=== PATIENT | male | born 1985 | race Caucasian/White ===

== ENCOUNTER 2016-07-15 19:44 | Emergency (ER) | payer BC, OTHER ==
[2016-07-15 19:58] VITALS: TEMP 97.8; BMI 38.7
--- NOTE | 2016-07-15 20:29 | PDOC ---
History of Present Illness - General Chief Complaint: Psychiatric Stated Complaint: ANXIETY Time Seen by Provider: 07/15/16 20:09 History Source: Patient, Family (Mother) Exam Limitations: No Limitations - History of Present Illness Initial Comments: 31yo Male patient w/ PmHx: Anxiety presents to ED c/o Panic attack. Patient states he was on his way to a "date" when he began to have anxiety. He reports full body numbness with rapid pulse. He states he recently began taking Claritin because Zyrtec was not working. Patient reports his PCP is aware, and has requested that he see a therapist, but patient states he did not have any health insurance at that time, but now has and is willing to go. Timing/Duration: just prior to arrival Severity: moderate Episode Description: See HPI Associated Symptoms: anxiety, impaired concentration Past History - Past Medical History Allergies/Adverse Reactions: Allergies Penicillins Allergy (Verified 07/15/16 19:53) Home Medications: Ambulatory Orders Diazepam [Valium] 5 mg PO Q8H PRN #9 tablet MDD 3 tabs 07/15/16 Loratadine [Claritin] 10 mg PO DAILY 07/15/16 Psychosocial History: Yes: anxiety, panic attacks (Today). No: no pertinent history, attention deficit, bipolar, depression, post traumatic stress, prior suicide attempt, schizophrenia, cancer, diabetes, heart disease, hypertension, lung disease, vascular disease, other Surgical History: No: No Surgical History, Noncontributory, Angioplasty, Appendectomy, Breast Reduction, Cancer Surgery, Cholecystectomy, Colectomy, Coronary Bypass Surgery, Cardiac Stent, Gastric Bypass, Hernia Repair, Lumpectomy, Pacemaker, Pneumothorax, Tonsillectomy, , Hysterectomy, Other - Family History Significant Family History: No: no pertinent family hx, asthma, heart disease, cancer, COPD, diabetes, hypertension, lung disease, renal disease, seizures, stroke, TIA, vascular disease, other - Immunization History Immunization Up to Date: Yes - Social History Smoking Status: Never smoked *Review of Systems - Review of Systems Able to Perform ROS?: Yes Constitutional: No: Chills, Fever HEENTM: No: Throat Pain, Throat Swelling, Difficulty Swallowing Respiratory: No: Shortness of Breath, Stridor, Wheezing, Hemoptysis Cardiac (ROS): Yes: Palpitations. No: Chest Pain, Irregular Heart Rate, Lightheadedness, Syncope, Chest Tightness ABD/GI: No: Diarrhea, Nausea, Poor Appetite, Poor Fluid Intake, Rectal Bleeding , Vomiting, Abdominal cramping : No: Dysuria, Flank Pain, Hematuria Musculoskeletal: No: Back Pain Integumentary: Yes: Sweating. No: Bruising, Dryness, Erythema, Rash Neurological: Yes: Numbness, Tingling. No: Headache, Paresthesia, Seizure, Tremors, Weakness, Unsteady Gait, Ataxia, Dizziness Psychiatric: Yes: Anxiety, Stressors. No: Depression All Other Systems: Reviewed and Negative *Physical Exam - Vital Signs Last Vital Signs Temp Pulse Resp BP Pulse Ox 97.8 F 120 H 22 149/108 97 07/15/16 19:53 07/15/16 19:53 07/15/16 19:53 07/15/16 19:53 07/15/16 19:53 - Physical Exam General Appearance: Yes: Nourished, Appropriately Dressed, Other (Mild Anxiety) . No: Apparent Distress, Mild Distress, Moderate Distress, Severe Distress HEENT: positive: EOMI, RODDY, Normal ENT Inspection, Normal Voice, Symmetrical, TMs Normal, Pharynx Normal. negative: Tonsillar Exudate, Tonsillar Erythema, Nasal Congestion, Rhinorrhea, TM Bulging, TM Dull, TM Erythema Neck: positive: Trachea midline, Normal Thyroid, Supple Respiratory/Chest: positive: Lungs Clear, Normal Breath Sounds. negative: Respiratory Distress, Accessory Muscle Use, Labored Respiration, Rapid RR, Crackles, Rales, Rhonchi, Stridor, Wheezing Cardiovascular: positive: Regular Rhythm, Regular Rate Gastrointestinal/Abdominal: positive: Normal Bowel Sounds, Soft. negative: Distended, Guarding, Rebound, Tenderness Musculoskeletal: positive: Normal Inspection. negative: CVA Tenderness Extremity: positive: Normal Capillary Refill, Normal Inspection, Normal Range of Motion. negative: Pedal Edema, Swelling, Calf Tenderness, Erythema, Inflammation Integumentary: positive: Normal Color, Dry, Warm Neurologic: positive: service person II-XII NML intact, Fully Oriented, Alert, Normal Mood/ Affect, Normal Response, Motor Strength 5/5 Plan - Order(s) Order(s): Orders Medication Instructions Recorded Loratadine [Claritin] 10 mg PO DAILY 07/15/16 Orders last 12 hours Category Date Time Status ELECTROCARDIOGRAM [CARD] Stat Cardiology 07/15/16 20:22 Ordered CBC WITH DIFFERENTIAL Stat Lab 07/15/16 20:22 Ordered URINALYSIS Stat Lab 07/15/16 20:22 Ordered Urine Toxicology [DRUG SCREEN,[facility]] Stat Lab 07/15/16 20:22 Ordered - Laboratory CBC & Chemistry Diagram: 07/15/16 20:52 07/15/16 20:52 - Radiology Study(ies) Orders: Category Date Time Status CHEST PA & LAT [RAD] Stat Radiology 07/15/16 20:22 Ordered *DC/Admit/Observation/Transfer Diagnosis at time of Disposition: Anxiety about health - Discharge Dispostion Disposition: HOME Condition at time of disposition: Improved Admit: No - Prescriptions Prescriptions: Diazepam [Valium] 5 mg PO Q8H PRN #9 tablet MDD 3 tabs PRN Reason: Anxiety - Referrals Referrals: Reba Werner MD [Staff Physician] - - Patient Instructions Printed Discharge Instructions: DI for Anxiety -- Adult Additional Instructions: FOLLOW UP WITH DR. REBA WERNER TO ESTABLISH CARE. CALL TO SCHEDULE APPOINTMENT. TAKE MEDICATIONS PRESCRIBED. DO NOT DRIVE, DRINK ALCOHOL, OR OPERATE HEAVY MACHINERY WHILE TAKING VALIUM. RETURN IF SYMPTOMS WORSEN OR ANY CONCERNS FOR FURTHER EVALUATION. Print Language: GUINEAN Heart Score/ECG Review - ECG Impressions Normal ECG: Yes Non-specific ST Elevation: No Ischemic Changes: No Bradycardia: No Torsades gunjan Pointes: No WPW: No
--- NOTE | 2016-07-15 21:34 | PDOC ---
*Physical Exam - Vital Signs Last Vital Signs Temp Pulse Resp BP Pulse Ox 97.8 F 120 H 22 149/108 97 07/15/16 19:53 07/15/16 19:53 07/15/16 19:53 07/15/16 19:53 07/15/16 19:53 ED Treatment Course - LABORATORY CBC & Chemistry Diagram: 07/15/16 20:52 07/15/16 20:52 Medical Decision Making - Medical Decision Making 07/15/16 21:34 agree with care from XAVIER Koenig *DC/Admit/Observation/Transfer Diagnosis at time of Disposition: Anxiety about health - Discharge Dispostion Disposition: HOME Condition at time of disposition: Improved - Prescriptions Prescriptions: Diazepam [Valium] 5 mg PO Q8H PRN #9 tablet MDD 3 tabs PRN Reason: Anxiety - Referrals Referrals: Reba Werner MD [Staff Physician] - - Patient Instructions Printed Discharge Instructions: DI for Anxiety -- Adult Additional Instructions: FOLLOW UP WITH DR. REBA WERNER TO ESTABLISH CARE. CALL TO SCHEDULE APPOINTMENT. TAKE MEDICATIONS PRESCRIBED. DO NOT DRIVE, DRINK ALCOHOL, OR OPERATE HEAVY MACHINERY WHILE TAKING VALIUM. RETURN IF SYMPTOMS WORSEN OR ANY CONCERNS FOR FURTHER EVALUATION. Print Language: AMERICAN
[2016-07-15 21:38] LABS: BASOPHIL 0.9 % (0-2.0); EOSINOPHIL 1.1 % (0-4.5); MCH 29.3 pg (25.7-33.7); MCHC 34.4 g/dl (32.0-35.9); MEAN CELL VOLUME 85.1 fl (80-96); MEAN PLT VOLUME 9.5 fl (7.5-11.1); NEUTROPHILS 67.1 % (42.8-82.8); PLATELET COUNT 205 K/MM3 (134-434); RDW 13.4 % (11.9-15.9); WHITE BLOOD COUNT 7.6 K/mm3 (4.0-10.0)
[2016-07-15 21:45] LABS: URINE APPEARANCE CLEAR; URINE BILIRUBIN NEGATIVE (NEGATIVE); URINE BLOOD NEGATIVE (NEGATIVE); URINE COLOR STRAW; URINE GLUCOSE (UA) NEGATIVE (NEGATIVE); URINE KETONE TRACE (NEGATIVE); URINE LEUK ESTERASE NEGATIVE (NEGATIVE); URINE NITRITE NEGATIVE (NEGATIVE); URINE PROTEIN NEGATIVE (NEGATIVE); URINE UROBILINOGEN NEGATIVE E.U./dl (0.2-1.0)
[2016-07-15 21:47] LABS: URINE MARIJUANA THC NEGATIVE ng/ml (CUTOFF=50)
[2016-07-15 22:05] LABS: ALBUMIN 4.4 g/dl (3.4-5.0); ANION GAP 11 (8-16); BILIRUBIN,TOTAL 0.5 mg/dL (0.2-1.0); CALCIUM 8.8 mg/dL (8.5-10.1); CO2 26 mmol/L (21-32); COCKROFT - GAULT 269.7; CREATININE 0.7 mg/dL (0.7-1.3); GLUCOSE,RANDOM 102 mg/dL (74-106); SGOT/AST 28 U/L (15-37); SGPT/ALT 48 U/L (12-78); TOT PROT 7.6 g/dl (6.4-8.2)
[2016-07-15 22:07] LABS: ALK PHOS 85 U/L (45-117); TROPONIN I < 0.02 ng/ml (0.00-0.05)
[2016-07-15 22:46] VITALS: BP 122/76; PULSE 80
--- NOTE | 2016-07-16 13:57 | EKG ---
Test Reason : Blood Pressure : / mmHG Vent. Rate : 081 BPM Atrial Rate : 081 BPM P-R Int : 202 ms QRS Dur : 100 ms QT Int : 402 ms P-R-T Axes : 037 002 020 degrees QTc Int : 466 ms NORMAL SINUS RHYTHM POSSIBLE LEFT ATRIAL ENLARGEMENT BORDERLINE ECG WHEN COMPARED WITH ECG OF 09-OCT-2008 00:37, QUESTIONABLE CHANGE IN QRS AXIS Confirmed by ESTEFANIA FRANCOIS MD ([id number]) on 07/16/2016 1:56:37 PM Referred By: Confirmed By:ESTEFANIA FRANCOIS MD
== END 2016-07-15 22:47 | disposition home or self-care (01) ==
LOC: JER 19:44
DX: F06.4 Anxiety disorder due to known physiological condition (principal)
CPT/HCPCS: 36415; 71020-TC; 80053; 80307; 81003; 82550; 84484; 85025; 93005; 93010; 99284-25